=== PATIENT | female | born 1970 | race Caucasian/White ===

== ENCOUNTER 2018-01-01 15:40 | Emergency (ER) | payer MEDICAID ==
[~2018-01-01] VITALS: Ht 167.6 cm; Wt 117.9 kg
[~2018-01-01 15:40] MED LIST: ATEN25TA7 PO; COZ50 PO; FURO-570 PO; GABA300C PO; HUM SUBQ; LANTUS SC; LEVO500T6 PO; METF1000 PO; NITR100C3 PO; OMEP20TC10 PO; SITA100T8 PO
[2018-01-01 16:14] VITALS: BP 128/29
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
--- NOTE | 2018-01-01 16:25 | NUR ---
Vance logan in [facility] - 01/01/18 at 1627 by CHARLOTTE PT AMBULATE VIA AID FROM KNEE SCOOT[facility] 01 AT 1626
--- NOTE | 2018-01-01 16:27 | NUR ---
PT AMBULATE TO BED 01 VIA AID FROM KNEE SCOOTER AT 1627
[2018-01-01] MEDS: METHOCARBAMOL 500 MG TAB PO SCH (17:32)
[2018-01-01] MEDS: KETOROLAC 60 MG/2 ML VIAL IM ONE (17:32)
--- NOTE | 2018-01-01 18:27 | NUR ---
PT. IN ROOM , LAYING IN BED, RR EVEN AND UNLABORED, BED IN LOWEST POSITION, WILL CONTINUE TO MONITOR.
[2018-01-01 19:10] VITALS: BP 126/60
--- NOTE | 2018-01-01 19:10 | NUR ---
Patient discharged with v/s stable. Written and verbal after care instructions given and explained. Patient alert, oriented and verbalized understanding of instructions. Ambulatory with steady gait. All questions addressed prior to discharge. ID band removed. Patient advised to follow up with PMD. Rx of ROBAXIN, NAPROXEN given. Patient educated on indication of medication including possible reaction and side effects. Opportunity to ask questions provided and answered.
== END 2018-01-01 19:10 | disposition home or self-care (01) ==
LOC: MED 15:40
DX: S16.1XXA Strain of muscle, fascia and tendon at neck level, initial encounter (principal); S39.012A Strain of muscle, fascia and tendon of lower back, initial encounter; E11.9 Type 2 diabetes mellitus without complications; I10 Essential (primary) hypertension; Z90.710 Acquired absence of both cervix and uterus; V43.62XA Car passenger injured in collision with other type car in traffic accident, initial encounter; Y93.19 Activity, other involving water and watercraft; Y92.488 Other paved roadways as the place of occurrence of the external cause; Y99.8 Other external cause status
CPT/HCPCS: 72040; 72110; 96372; 99284; J1885

== ENCOUNTER 2019-05-12 18:43 | Emergency (ER) | payer MEDICAID ==
[~2019-05-12] VITALS: Ht 167.6 cm; Wt 99.8 kg
[~2019-05-12 18:43] MED LIST changes: -COZ50 PO; +LOSA50TA57 PO
[2019-05-12 18:52] VITALS: BP 77/50
--- NOTE | 2019-05-12 18:59 | NUR ---
ORANGE JUICE WITH APRIL CRACKER FED TO PT
--- NOTE | 2019-05-12 19:12 | NUR ---
REVIEWED EKG---CARMITA PM SHIFT RN NOTIFIED, NEXT AVAILABLE ROOM
--- NOTE | 2019-05-12 19:30 | NUR ---
48 Y/O F PRESENTS TO ER C/O HEADACHE, WEAKENESS, DIZZY. PT HAS NAUSEA AND VOMITED 3-4 TIMES. PT HAS BEEN FEELING THIS WAY SINCE 6AM. PER PT SHE STARTED FEELING THIS WAY BECAUSE SHE STARTED NEW INSULIN RX. PAIN LEVEL 9/10 HEADACHE TO THE BACK OF THE HEAD. MED HX: HTN AND DM . SURGERIES: HYSTERECTOMY, LUNG SURGERY, AND EYE SURGERY. SAFETY MEASURES IN PLACE. ERMD AT BEDSIDE.
[2019-05-12] MEDS ORDERED: KETOROLAC 30 MG/ML VIAL IVP ONE (19:35)
[2019-05-12] MEDS ORDERED: NACL 0.9% 1,000 ML IV ONE (19:35)
[2019-05-12 19:51] LABS: BASOPHILS # (AUTO) 0.1 K/uL (0.00-0.22); BASOPHILS % (AUTO) 0.7 % (0.0-2.0); EOSINOPHILS # (AUTO) 0.2 K/uL (0-0.4); EOSINOPHILS % (AUTO) 1.3 % (0.0-4.0); HEMATOCRIT 40.9 % (36-48); LYMPHOCYTES # (AUTO) 2.6 K/uL (2.5-16.5); LYMPHOCYTES % (AUTO) 19.4 % (20.5-51.1); MEAN CORPUSCULAR HEMOGLOBIN 28 pg (27-31); MEAN CORPUSCULAR HGB CONC 32 g/dL (33-37); MEAN CORPUSCULAR VOLUME 87.6 fL (80-94); MONOCYTES # (AUTO) 0.9 K/uL (0.8-1.0); MONOCYTES % (AUTO) 6.6 % (1.7-9.3); NEUTROPHILS # (AUTO) 9.8 K/uL (1.8-7.7); PLATELET COUNT (AUTO) 331 K/uL (140-450); RED BLOOD CELL COUNT(AUTO) 4.67 MIL/uL (4.20-5.40); RED CELL DISTRIBUTION WIDTH 14.7 % (11.6-13.7); WHITE BLOOD COUNT (AUTO) 13.7 K/uL (4.8-10.8)
[2019-05-12 20:04] LABS: ANION GAP 12.3 (8-16); CARBON DIOXIDE 27.9 mmol/L (21-32); CREATININE 1.8 mg/dL (0.6-1.3); POTASSIUM 4.2 mmol/L (3.5-5.1); PROTHROMBIN TIME 9.4 secs (10.8-13.4)
--- NOTE | 2019-05-12 20:10 | NUR ---
PT PAIN LEVEL DECREASED TO 7/10
[2019-05-12 20:44] LABS: ANION GAP 11.8 (8-16); CARBON DIOXIDE 27.3 mmol/L (21-32); CREATININE 1.8 mg/dL (0.6-1.3); POTASSIUM 4.1 mmol/L (3.5-5.1); TOTAL BILIRUBIN 0.5 mg/dL (0.0-1.0)
[2019-05-12 20:45] LABS: ALBUMIN 3.1 g/dL (3.4-5.0)
--- NOTE | 2019-05-12 21:00 | NUR ---
PER PT "I FEEL LIKE MY BLOOD SUGAR IS GOING DOWN" PROVIDED ORANGE JUICE AND CRACKERS.
--- NOTE | 2019-05-12 22:00 | NUR ---
Note doreen in EDM - 05/12/19 at 2202 by MURIEL Patient discharged by Dr. Dumont with v/s stable. Written and verbal after care instructions given and explained. Patient verbalized understanding. Ambulatory with steady gait. All questions addressed prior to discharge. Advised to follow up with PMD.
--- NOTE | 2019-05-12 22:00 | NUR ---
PT WHEELCHAIR ASSISTED TO RESTROOM
[2019-05-12 23:16] LABS: APPEARANCE,URINE CLEAR (CLEAR); COLOR,URINE YELLOW (YELLOW)
[2019-05-12 23:17] LABS: BILIRUBIN,URINE NEGATIVE (NEGATIVE); BLOOD, URINE NEGATIVE (NEGATIVE); LEUKOCYTE ESTERASE ,URINE NEGATIVE (NEGATIVE); NITRITE, URINE NEGATIVE (NEGATIVE); RBC,URINE 0-5 /HPF (0-5); UGLUCOSE 4+ (NEGATIVE); WBC,URINE 0-5 /HPF (0-5); YEAST,URINE Moderate /HPF (None Seen)
[2019-05-12] MEDS ORDERED: CIPROFLOXACIN 250 MG TAB PO ONE (23:35)
[2019-05-12 23:59] VITALS: BP 120/52
--- NOTE | 2019-05-12 23:59 | NUR ---
Patient discharged by Dr. Dumont with v/s stable. Written and verbal after care instructions given and explained. Patient alert, oriented and verbalized understanding of instructions. Wheel chair assisted to car. All questions addressed prior to discharge. ID band removed. Patient advised to follow up with PMD. Rx of CIPRO 500 MG WAS given. Patient educated on indication of medication including possible reaction and side effects. Opportunity to ask questions provided and answered.
== END 2019-05-12 23:59 | disposition home or self-care (01) ==
LOC: MED 18:43
DX: N39.0 Urinary tract infection, site not specified (principal); E11.9 Type 2 diabetes mellitus without complications; I10 Essential (primary) hypertension; Z90.49 Acquired absence of other specified parts of digestive tract; Z98.890 Other specified postprocedural states; Z79.4 Long term (current) use of insulin; Z79.899 Other long term (current) drug therapy
CPT/HCPCS: 36415; 71045; 80048; 80053; 81001; 84484; 85025; 85610; 87086; 93005; 96374; 99284; J1885; J7030